=== PATIENT | female | born 1945 | race Caucasian/White ===

== ENCOUNTER → 2017-07-16 | Outpatient (CLI) | payer OTHER ==
[~2017-07-16] VITALS: Ht 167.6 cm; Wt 76.7 kg
[~2017-07-16] MED LIST: ALEVE220 MG PO; ALLEGRA ALLERG180 MG PO; AMLODIPINE BESYL5 MG PO; COLESTID1 GM PO; ESTRACE0.5 MG PO; EXEDRIN; LIPITOR 20 MG T20 M1 PO; PREVASTATIN; SPIRONOLACTONE25 MG PO; VITAMIN D1000 UNI1 PO
--- NOTE | ~2017-07-16 | HPC ---
[facility] [address] [place] [address] PAIN MANAGEMENT CONSULTATION Name: DOLLY GEORGE Room #: REG [facility].#: [id number] Admission: 07/16/17 Attend Phys: Dilshad Vázquez MD Discharge: Date of : 49 Report #: [id number] THIS REPORT FOR: //name// CC: Eh Vázquez DATE OF SERVICE: 07/16/2017 Followup visit for recurring low back pain with radiculopathy. SUBJECTIVE: The patient returns to pain clinic today with her . She was last seen in January, at which time she received 2-level transforaminal epidural injection at L4-L5, L5-S1. She was responded beautifully to these injections. She has a radiologic evidence of lumbar spondylosis with a disk space narrowing and bulging at the L4-L5 disk level and a central annular tear. There are no lateralizing disk herniation was identified. At each of her last 2 visit, she has had 75-80% improvement that has been sustained for over 2-3 months. Then, the pain gradually returns. Pain began returning this summer and is now at a level of 7-8/10. She describes it as a deep aching sensation that begins in her low back, radiates into her left buttock and down the left leg to the calf. It is worsened by standing and walking, alleviated by medications and getting off her feet either sitting or lying down. MEDICATIONS: Include ____, cholecalciferol, Yasmine, Colestid, amlodipine, spironolactone, estradiol. ALLERGIES: TIZANIDINE, SHELLFISH, MONTELUKAST, SEAFOOD. PHYSICAL EXAMINATION: She is a pleasant 71-year-old, moves easily from sitting to standing position with mild antalgic features to her gait. She has tenderness across her low back and straight leg raising pain that radiates into the left buttock, left leg and foot. It follows the L4-L5 distribution. IMPRESSION: L4-L5 radiculopathy on the left. RECOMMENDATIONS: Based upon her excellent response to 2-level transforaminal injection, I am going to repeat the injection today. We will provide equal amount of medication in each level 40 mg of triamcinolone and 0.5% lidocaine. Procedure explained, risks and benefits. She is anxious to proceed. PROCEDURE: 2-level L4-L5, L5-S1 transforaminal epidural injection on the left. DESCRIPTION OF PROCEDURE: The patient was placed in the prone position. Skin was prepped with ChloraPrep. Skin was anesthetized over the L4-L5 and L5-S1 neural foramen. At each level, I advanced needle into the neural foramen using [facility] [address] [place] [address] PAIN MANAGEMENT CONSULTATION Name: GEORGEDOLLY Room #: REG [facility] [place]#: [id number] Admission: 07/16/17 Attend Phys: Dilshad Vázquez MD Discharge: Date of : 49 Report #: [id number] triplanar fluoroscopic views. Once in position, I confirmed the location with 0.5 mL of Omnipaque through each needle demonstrating spread along the nerve root and into the epidural space at each level. This was then followed by 0.5 mL of 0.5% lidocaine mixed with 40 mg of triamcinolone at each level. She tolerated the procedure well, was observed for 45 minutes and discharged. Pain score at discharge was 0. No medications were ordered. I will see her as needed. By: [id number] Dilshad Vázquez MD /nt
[2017-07-16 13:48] VITALS: BP 122/77
== END | disposition home or self-care (01) ==
LOC: PAIN 07:27
DX: M47.26 Other spondylosis with radiculopathy, lumbar region (principal); Z88.8 Allergy status to other drugs, medicaments and biological substances; Z79.899 Other long term (current) drug therapy; M54.16 Radiculopathy, lumbar region